=== PATIENT | male | born 1980 | race African-American/Black ===

== ENCOUNTER 2016-10-26 07:02 | Emergency (ER) | payer MEDICARE, MEDICAID ==
[~2016-10-26] VITALS: Ht 177.8 cm; Wt 136.4 kg
[~2016-10-26 07:02] MED LIST: CLONAZEPAM PO; CYMBALTA; CYMBALTA 60MG60 MG PO; DARVOCET-N-101 UDTAB PO; ELAVIL10 MG PO; FIORINAL W/CODE1 CA2 PO; FLEXERIL 1010 MG/TAB PO; GUAIFEN-PSE 6001 TER PO; INDERAL; INDERAL 20MG20 MG PO; KLONOPIN 1MG1 MG PO; LORTAB 5/500 501 TAB PO; NAPROSYN500 MG PO; NO HOME MEDICATIONS; NORCO 325 MG-51 TAB PO; NORCO 325 MG-7.1 TAB PO; PEPCID 20MG TAB20 MG PO; PERCOCET 325 MG1 TA2 PO; PHENERGAN 25 TA25 MG PO; PHENERGAN W/CO120 ML PO; PRILOSEC 20MG20 MG PO; SEROQUEL; SEROQUEL200 MG PO; TYLENOL W/COD1 UDTAB PO; ULTRAM50 MG PO; ZITHROMAX Z PA250 MG PO; ZOLOFT; ZOLOFT 25MG25 MG PO
[2016-10-26 07:05] VITALS: BP 136/75; PULSE 84; TEMP 98.1
[2016-10-26] MEDS ORDERED: PRILOSEC 20MG20 MG PO (07:08)
[2016-10-26] MEDS ORDERED: XALATAN EYE DROPS OD (07:11)
== END 2016-10-26 07:54 | disposition left against medical advice (07) ==
LOC: COL.ER 07:02
DX: R10.84 Generalized abdominal pain (principal); M79.671 Pain in right foot; Z53.21 Procedure and treatment not carried out due to patient leaving prior to being seen by health care provider
CPT/HCPCS: J1170

== ENCOUNTER 2017-03-24 02:16 | Emergency (ER) | payer MEDICARE, MEDICAID ==
[~2017-03-24] VITALS: Ht 177.8 cm; Wt 122.7 kg
[~2017-03-24 02:16] MED LIST changes: +XALATAN EYE DROPS OD
[2017-03-24 02:21] VITALS: TEMP 97.7
[2017-03-24 03:00] LABS: AMPHETAMINE URINE NEGATIVE; BARBITURATES URINE NEGATIVE; BENZODIAZEPINES URINE NEGATIVE; BUPRENORPHINE URINE NEGATIVE; METHADONE URINE NEGATIVE; OPIATES URINE NEGATIVE; OXYCODONE URINE NEGATIVE; PHENCYCLIDINE URINE NEGATIVE; PROPOXYPHENE URINE NEGATIVE; THC CANNABINOIDS URINE NEGATIVE; TRICYCLIC ANTIDEPRESS URINE NEGATIVE
[2017-03-24 03:17] LABS: BASO % 0.4 % (0.0-2.0); EOS # 0.3 (0.0-0.7); GRAN # 4.8 (1.4-6.5); GRAN % 50.1 % (42.2-75.2); HEMOGLOBIN 12.3 g/dl (13.5-18.0); LYMPH # 3.1 (1.2-3.4); LYMPH % 31.8 % (20.0-51.0); MEAN CELL VOLUME 89 fl (80.0-100.0); MEAN CORPUSCULAR HEMOGLOBIN 28 pg (27.0-31.0); MEAN CORPUSCULAR HGB CONC 32 g/dl (33.0-37.0); MEAN PLATELET VOLUME 10.7 fl (7.4-10.4); MONO # 1.4 (0.1-0.6); MONO % 14.1 % (1.7-9.3); PLATELET COUNT 190 K/mm3 (130-400); RED BLOOD COUNT 4.36 M/mm3 (4.20-5.60); WHITE BLOOD COUNT 9.7 K/mm3 (4.8-10.8)
[2017-03-24 03:32] LABS: ADJUSTED CALCIUM 8.9 mg/dL (8.4-10.2); ALANINE AMINOTRANSFERASE 41 U/L (21-72); ALBUMIN 3.2 gm/dL (3.5-5.0); ALKALINE PHOSPHATASE 70 U/L (50-136); ANION GAP 7 mmol/L (7-16); BILIRUBIN,TOTAL 0.4 mg/dL (0.0-1.0); BLOOD UREA NITROGEN 14 mg/dL (9-20); CALCIUM 8.3 mg/dL (8.4-10.2); CARBON DIOXIDE 28 mmol/L (22-30); CHLORIDE 102 mmol/L (98-107); GLUCOSE 83 mg/dL (74-106); POTASSIUM 3.7 mmol/L (3.4-5.0); SODIUM 137 mmol/L (137-145); TOTAL PROTEIN 5.5 gm/dL (6.4-8.2)
[2017-03-24 03:39] LABS: ACETAMINOPHEN < 10 ug/mL (10-30); ALCOHOL(ethanol),MEDICAL < 10 mg/dL; SALICYLATE < 1.0 mg/dL
[2017-03-24 09:47] VITALS: BP 127/60; PULSE 71
== END 2017-03-24 10:12 ==
LOC: COL.ER 02:16
PROVIDERS: Physician Assistant
DX: R45.851 Suicidal ideations (principal); F17.210 Nicotine dependence, cigarettes, uncomplicated; Z90.89 Acquired absence of other organs; Z98.890 Other specified postprocedural states